=== PATIENT | male | born 1995 | race Caucasian/White ===

== ENCOUNTER 2022-08-20 08:39 | Emergency (ER) | payer OTHER, SELFPAY ==
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
[2022-08-20 08:50] VITALS: BP 134/96; PULSE 72; RESP 20; TEMP 36.8; O2SAT 98; BMI 41.5
--- NOTE | 2022-08-20 08:58 | PC.NURSE ---
Pt refuses c-collar
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
[2022-08-20 11:14] VITALS: BP 134/84; PULSE 68; RESP 19; O2SAT 100
== END 2022-08-20 11:33 | disposition home or self-care (01) ==
PROVIDERS: Emergency Provider Emergency Medicine
DX: S13.4XXA Sprain of ligaments of cervical spine, initial encounter (principal); S39.012A Strain of muscle, fascia and tendon of lower back, initial encounter; S90.01XA Contusion of right ankle, initial encounter; M54.2 Cervicalgia; V43.52XA Car driver injured in collision with other type car in traffic accident, initial encounter; Y93.9 Activity, unspecified; Y92.410 Unspecified street and highway as the place of occurrence of the external cause; Y99.9 Unspecified external cause status
CPT/HCPCS: 72040; 99283; 99284